=== PATIENT | male | born 1985 | race Hispanic/Latino ===

== ENCOUNTER 2018-10-31 03:09 | Emergency (ER) | payer OTHER ==
[2018-10-31] MEDS ORDERED: KETOROLAC TROMETHAMINE 60 MG/2 ML VIAL ONE (04:04)
[2018-10-31] MEDS ORDERED: CYCLOBENZAPRINE HCL 10 MG TABLET ONE (06:35)
== END 2018-10-31 06:43 ==
LOC: EDH 03:09
DX: M54.5 Low back pain (principal); M62.838 Other muscle spasm; I10 Essential (primary) hypertension; Z72.0 Tobacco use
CPT/HCPCS: 72100; 96372; 99283; J1885